=== PATIENT | female | born 1985 | race Caucasian/White ===

== ENCOUNTER 2017-10-09 18:30 | Emergency (ER) | payer OTHER ==
[~2017-10-09] VITALS: Ht 154.9 cm; Wt 76.2 kg
[2017-10-09] MEDS ORDERED: PNEU16DI2 (18:48)
[2017-10-09] MEDS ORDERED: SYNTHROID112 MCG (18:48)
[2017-10-09] MEDS ORDERED: PRILOSEC OTC20 MG (18:49)
[2017-10-09] MEDS ORDERED: ZANTAC300 MG (18:49)
== END 2017-10-09 23:57 | disposition home or self-care (01) ==
LOC: ER 18:30
DX: K52.9 Noninfective gastroenteritis and colitis, unspecified (principal)

== ENCOUNTER 2024-04-06 07:31 | Outpatient (CLI) | payer OTHER ==
[~2024-04-06 07:31] MED LIST: PNEU16DI2; PRILOSEC OTC20 MG; SYNTHROID112 MCG; ZANTAC300 MG
== END 2024-04-06 07:54 | disposition home or self-care (01) ==
LOC: SONOGRAMA 07:31
DX: E89.0 Postprocedural hypothyroidism (principal)